=== PATIENT | female | born 1995 | race African-American/Black ===

== ENCOUNTER 2018-02-28 13:24 | Emergency (ER) | payer OTHER ==
--- NOTE | 2018-02-28 14:26 | ED Physician Documentation ---
History of Present Illness - Stated complaint Stated Complaint: ABD PX - Chief complaint Chief Complaint: Abd Pain - Additonal information Additional information: hx from pt 22 y/o female not preg now on OCP LMP 02/14 int RLQ / low R pelvic pain X 2 tears occurs about 3-4 X a week severe but short lived has been seen for same by numerous doctors - has a sono to look for cysts, CT to look for appy and hernia, pelvic with cultures and PAP about 2 m ago had another episode this AM lasted 30 min no fever NVD vag bleed or dc dysuria neg pelvic cx recently and denies STD concern - one partner now resolved no specific inciting factors Review of Systems Constitutional: denies: Fever, Chills Cardiac: denies: Chest pain / pressure Respiratory: denies: Dyspnea GI: reports: Abdominal Pain. denies: Nausea, Vomiting, Diarrhea : denies: Now EGA Endocrine: denies: Easy bruising / bleeding Immunocompromised: denies: Immunocompromised PD PAST MEDICAL HISTORY - Present Medications Home Medications: Ambulatory Orders Medication Instructions Recorded Confirmed Desogestrel-Ethinyl Estradiol 1 tab PO DAILY 02/28/18 02/28/18 [Reclipsen 28 Day Tablet] - Allergies Allergies/Adverse Reactions: Allergies Allergy/AdvReac Type Severity Reaction Status Date / Time No Known Drug Allergies Allergy Verified 02/28/18 13:31 PD ED PE NORMAL - Vitals Vital signs reviewed: Yes - General General: Alert and oriented X 3 - HEENT HEENT: PERRL - Neck Neck: Supple, no meningeal sign - Cardiac Cardiac: RRR - Respiratory Respiratory: No respiratory distress, Clear bilaterally - Abdomen Abdomen: Soft, Non tender, Other (palpable hernia) - Derm Derm: Normal color - Neuro Neuro: Alert and oriented X 3 Results - Vitals Vitals: Vital Signs - 24 hr 02/28/18 02/28/18 02/28/18 13:28 14:20 15:29 Temperature 36.4 C L 36.6 C Heart Rate 47 L 50 L 62 Respiratory 14 12 14 Rate Blood Pressure 144/65 H 137/76 H 113/83 H O2 Saturation 100 100 99 02/28/18 16:16 Temperature Heart Rate 47 L Respiratory 14 Rate Blood Pressure 117/73 O2 Saturation 98 Oxygen O2 Source Room air - Labs Labs: Laboratory Tests 02/28/18 14:35 Urine Color YELLOW Urine Clarity CLEAR Urine pH 6.0 Ur Specific [place] 1.020 Urine Protein NEGATIVE Urine Glucose (UA) NEGATIVE Urine Ketones NEGATIVE Urine Occult Blood NEGATIVE Urine Nitrite NEGATIVE Urine Bilirubin NEGATIVE Urine Urobilinogen 0.2 (NORMAL) Ur Leukocyte Esterase NEGATIVE Ur Microscopic Review NOT INDICATED Urine Culture Comments NOT INDICATED Urine HCG, Qual NEGATIVE Departure - Departure Disposition: Home, Self Care Clinical Impression: Pelvic pain Condition: Good Instructions: ED Pelvic Pain [facility], ED Endometriosis Follow-Up: Cynthia Armenta DO [Provider Admit Priv/Credential] - Comments: The urine tests did not show infection Your test was negative And the ultrasound was fine - normal blood flow to ovaries and and no cysts So I am not sure what is causing the pain One possibility is a disease process called endometriosis - I have attached information about this. Endometeriosis cannot be diagnosed by ultrasound - sometimes women have to have a scope/surgery to look inside their pelvis to determine what is wrong - I recommend you follow up with a [employer] specialist for further evaluation
[2018-02-28 14:40] LABS: BILIRUBIN,URINE NEGATIVE (NEGATIVE); GLUCOSE, URINE (UA) NEGATIVE (NEGATIVE); KETONES,URINE (UA) NEGATIVE (NEGATIVE); LEUKOCYTE ESTERASE, URINE NEGATIVE (NEGATIVE); NITRITE,URINE NEGATIVE (NEGATIVE); OCCULT BLOOD,URINE NEGATIVE (NEGATIVE); PROTEIN,URINE NEGATIVE (NEGATIVE); UROBILINOGEN,URINE 0.2 (NORMAL) E.U./dL (NORMAL)
[2018-02-28 14:44] LABS: CLARITY,URINE CLEAR (CLEAR); HCG UR QUAL NEGATIVE
--- NOTE | 2018-02-28 15:26 | Ultrasound Report ---
EXAM: PELVIC ULTRASOUND EXAM DATE: 02/28/2018 03:10 PM. CLINICAL HISTORY: Right pelvic pain. COMPARISON: None. TECHNIQUE: Realtime transabdominal pelvic scan performed to identify the uterus and adnexa and as an overview of other pelvic structures, followed by transvaginal scan to provide greater detail of the u terus and adnexa, with static image documentation. FINDINGS: Uterus: 7.2 x 3.2 x 4.7 cm, volume 57 cc. Retroverted position. Normal overall size and echotexture. Masses: None. Endometrium: 2 mm. Normal. Cervix: 5 mm nabothian cyst. Right Ovary: 2.3 x 1.3 x 2.3 cm, volume 3.5 cc. Poorly seen due to ovarian position without gross les ion. Left Ovary: 2.2 x 1.5 x 2.4 cm, volume 4.1 cc. Normal echotexture and blood flow. Free Fluid: None. Other: None. IMPRESSION: 1. Right ovary poorly seen due to the position of the ovary. Normal size without gross lesion. 2. Normal sonographic appearance of the uterus and left ovary. [facility] Referring Provider Line: [phone] SITE ID: [id number]
--- NOTE | 2018-02-28 15:26 | Ultrasound Preliminary Report ---
Exam: US PELVIC W/TRANSVAG+DOPPLER COMP IMPRESSION: 1. Right ovary poorly seen due to the position of the ovary. Normal size without gross lesion. 2. Normal sonographic appearance of the uterus and left ovary. [facility] SITE ID: [id number]
[2018-02-28 16:16] VITALS: BP 117/73
== END 2018-02-28 16:29 | disposition home or self-care (01) ==
LOC: ED 13:24
DX: R10.2 Pelvic and perineal pain (principal); R10.31 Right lower quadrant pain
CPT/HCPCS: 76830; 76856; 81001; 81003; 81025; 87086; 93975; 99283